=== PATIENT | male | born 1980 | race Caucasian/White ===

== ENCOUNTER 2018-02-24 17:00 | Emergency (ER) | payer MEDICAID ==
[2018-02-24 17:15] VITALS: BP 126/86; PULSE 76; RESP 18; TEMP 98.1; O2SAT 98
--- NOTE | 2018-02-24 17:21 | ED PDOC ---
HPI: Skin/Bite Injury Time Seen by Provider: 02/24/18 17:16 Chief Complaint (Nursing): Abnormal Skin Integrity Chief Complaint (Provider): Abscess History Per: Patient History/Exam Limitations: no limitations Onset/Duration Of Symptoms: Days (2) Current Symptoms Are (Timing): Still Present Additional Complaint(s): 37 year old male presents to the emergency department with a complaint of a painful mass to the left upper chest region x2 days. Denies fever. Past Medical History Reviewed: Historical Data, Nursing Documentation, Vital Signs Vital Signs: Last Vital Signs Temp 98.1 F 02/24/18 17:12 Pulse 76 02/24/18 17:12 Resp 18 02/24/18 17:12 BP 126/86 02/24/18 17:12 Pulse Ox 98 02/24/18 18:36 - Medical History PMH: No Chronic Diseases - Surgical History Surgical History: No Surg Hx - Family History Family History: States: Unknown Family Hx - Social History Current smoker - smoking cessation education provided: No Alcohol: None Drugs: Denies - Home Medications Home Medications: Ambulatory Orders Medication Instructions Recorded Sulfamethoxazole/Trimethoprim 2 tab PO BID #28 tab 02/24/18 [Bactrim DS 800 mg-160 mg] - Allergies Allergies/Adverse Reactions: Allergies Allergy/AdvReac Type Severity Reaction Status Date / Time No Known Allergies Allergy Verified 02/24/18 17:11 Review of Systems ROS Statement: Except As Marked, All Systems Reviewed And Found Negative (As per HPI, otherwise negative) Constitutional: Negative for: Fever Skin: Positive for: Other (painful mass to the left upper chest region) Physical Exam - Reviewed Nursing Documentation Reviewed: Yes Vital Signs Reviewed: Yes - Physical Exam Appears: Positive for: No Acute Distress Skin: Positive for: Normal Color (3 cm erythematous fluctuant tender mass with minimal surrounding erythema), Dry Neurologic/Psych: Positive for: Alert, Oriented (x3) - ECG O2 Sat by Pulse Oximetry: 98 (RA) Pulse Ox Interpretation: Normal Medical Decision Making Medical Decision Making: Time: 1719 Initial impression: Skin Abscess Initial plan: I&D procedure Procedure can be found within I&D tab of chart. Time: 1809 Patient is medically clear for discharge and given Rx for Bactrim DS 800 mg-160 mg. Follow up with PMD or return to ED in 48 hours for wound check/packing removal. Clinical Impression: Abscess Scribe Attestation: Documented by Vera Coates, acting as a scribe for Seymour Soto PA-C. Provider Scribe Attestation: All medical record entries made by the Scribe were at my direction and personally dictated by me. I have reviewed the chart and agree that the record accurately reflects my personal performance of the history, physical exam, medical decision making, and the department course for this patient. I have also personally directed, reviewed, and agree with the discharge instructions and disposition. Disposition - Clinical Impression Clinical Impression: Abscess - Patient ED Disposition Is Patient to be Admitted: No Counseled Patient/Family Regarding: Diagnosis, Need For Followup, Rx Given - Disposition Referrals: [facility] [Outside] Disposition: Routine/Home Disposition Time: 18:10 Condition: IMPROVED Additional Instructions: Follow up with PMD or return to ED in 48 hours for wound check/packing removal. Return to ED immediately if symptoms worsen. Prescriptions: Sulfamethoxazole/Trimethoprim [Bactrim DS 800 mg-160 mg] 2 tab PO BID #28 tab Instructions: Abscess Incision and Drainage (DC) Forms: [facility] (I[place]ic) Print Language: ARMENIAN Procedures - Time-Out Type of Procedure: Incision and Drainage Site of Procedure: L upper chest Correct Patient (with visual ID + MR# on ID Band): Yes Correct Procedure: Yes Correct Site Marked: Yes PA/Tech: Charles CHAPA - Incision and Drainage Blade Size: 11 I & D Procedure: betadine prep, sterile drapes applied, sterile dressing applied , gauze wick placed
[2018-02-24] MEDS ORDERED: Povidone Iodine Topical 10% Sol ONE (17:25)
== END 2018-02-24 18:35 | disposition home or self-care (01) ==
LOC: H.ER 17:00 → SUPCPDRO 17:00 → H.ER 18:35
DX: L02.213 Cutaneous abscess of chest wall (principal)

== ENCOUNTER 2018-02-27 13:13 | Emergency (ER) | payer MEDICAID ==
[2018-02-27 13:45] VITALS: BP 127/87; PULSE 64; RESP 16; TEMP 98.1; O2SAT 97
--- NOTE | 2018-02-27 14:12 | ED PDOC ---
HPI: Wound Care - HPI Time Seen by Provider: 02/27/18 13:46 Chief Complaint (Nursing): Wound Check Chief Complaint (Provider): Wound check History Per: Patient Exam Limitations: no limitations Location Of Injury: Right: Chest, Anterior: Chest Additional Complaint(s): 37 year old male presents to ED for wound check. Patient was seen in the ED 2 days ago for incision and drainage of abscess on the left shoulder. Patient reports he feels better today and has been taking prescribed antibiotics. Denies fever. PCP: none Past Medical History Reviewed: Historical Data, Nursing Documentation, Vital Signs Vital Signs: Last Vital Signs Temp 98.1 F 02/27/18 13:42 Pulse 64 02/27/18 13:42 Resp 16 02/27/18 13:42 BP 127/87 02/27/18 13:42 Pulse Ox 97 02/27/18 13:42 - Medical History PMH: No Chronic Diseases - Surgical History Surgical History: No Surg Hx - Family History Family History: States: No Known Family Hx - Living Arrangements Living Arrangements: With Family - Social History Current smoker - smoking cessation education provided: No Alcohol: None Drugs: Denies - Immunization History Hx Tetanus Toxoid Vaccination: Yes - Home Medications Home Medications: Ambulatory Orders Medication Instructions Recorded Sulfamethoxazole/Trimethoprim 2 tab PO BID #28 tab 02/24/18 [Bactrim DS 800 mg-160 mg] - Allergies Allergies/Adverse Reactions: Allergies Allergy/AdvReac Type Severity Reaction Status Date / Time No Known Allergies Allergy Verified 02/27/18 13:42 Review of Systems ROS Statement: Except As Marked, All Systems Reviewed And Found Negative Constitutional: Negative for: Fever Skin: Positive for: Other (wound check of abscess to left shoulder region) Physical Exam - Reviewed Nursing Documentation Reviewed: Yes Vital Signs Reviewed: Yes - Physical Exam Appears: Positive for: Well, Non-toxic Skin: Positive for: Normal Color. Negative for: Rash Eye Exam: Positive for: Normal appearance Neck: Positive for: Normal Extremity: Positive for: Normal ROM, Other (healing abscess with packing noted to left anterior shoulder) Neurologic/Psych: Positive for: Alert, Oriented. Negative for: Motor/Sensory Deficits - ECG O2 Sat by Pulse Oximetry: 97 (RA) Pulse Ox Interpretation: Normal Medical Decision Making Medical Decision Making: Initial Impression: 37 year old male here for wound check and packing removal Initial Plan: Packing removed with no difficulty and wound is healing well. Patient advised to continue taking antibiotics and to care for wound as instructed and return if worse. Scribe Attestation: Documented by Karel Perkins acting as a scribe for [place] CHAPA. Provider Scribe Attestation: All medical record entries made by the Scribe were at my direction and personally dictated by me. I have reviewed the chart and agree that the record accurately reflects my personal performance of the history, physical exam, medical decision making, and the department course for this patient. I have also personally directed, reviewed, and agree with the discharge instructions and disposition. Disposition - Clinical Impression Clinical Impression: Encounter for wound re-check, Abscess packing removal - Patient ED Disposition Is Patient to be Admitted: No Counseled Patient/Family Regarding: Need For Followup - Disposition Referrals: [facility] [Outside] Disposition: Routine/Home Disposition Time: 14:38 Condition: STABLE Additional Instructions: Continue with course of antibiotics. Keep area clean and dry. Follow-up as needed with primary doctor or return if worse any time. Instructions: Skin Abscess Forms: [employer] (Bruneian)
== END 2018-02-27 16:02 | disposition home or self-care (01) ==
LOC: H.ER 13:13
DX: Z48.00 Encounter for change or removal of nonsurgical wound dressing (principal)